=== PATIENT | male | born 1955 | race Caucasian/White ===

== ENCOUNTER → 2018-04-23 | Outpatient (CLI) | payer OTHER ==
[~2018-04-23] MED LIST: ACID REDUCER20 MG PO; AMIT25 PO; ATOR10 PO; CYCL10 PO; DOC250 PO; FINA5 PO; GABA300 PO; HYDR1TAB94 PO; Mobic15 MG PO; TAMS.4ER PO; Toprol Xl50 MG PO
[2018-04-23 10:43] LABS: Alanine Aminotransfer (ALT/SGP 26 U/L (12-78); Albumin, Blood 3.6 g/dL (3.4-5.0); Alk Phos 115 U/L (40-126); Anion Gap 8 mmol/L (6-16); Aspartate Aminotrans (AST/SGOT 20 U/L (12-37); Bilirubin, Total 0.4 mg/dL (0.1-1.0); Blood Urea Nitrogen 16 mg/dL (8-24); CO2, Blood 28 mmol/L (21-32); Calcium, Blood 9.3 mg/dL (8.5-10.1); Chloride, Blood 105 mmol/L (98-108); Globulin, Blood 3.6 g/dL (2.2-4.0); Glomerular Filtration Rate >60 (60-); Glucose, Blood 108 mg/dL (70-99); Potassium, Blood 3.9 mmol/L (3.5-5.5); Sodium, Blood 141 mmol/L (136-145); Total Protein, Blood 7.2 g/dL (6.4-8.2)
== END | disposition home or self-care (01) ==
LOC: LAB SHORT 10:13 → LAB EV 10:13
PROVIDERS: Physician Assistant Medical
DX: R60.9 Edema, unspecified (principal)
CPT/HCPCS: 80053

== ENCOUNTER → 2018-12-20 | Outpatient (CLI) | payer OTHER | END | disposition home or self-care (01) | LOC: LAB EV 11:30 → LAB SHORT 11:30 | DX: G89.29 Other chronic pain (principal) | CPT/HCPCS: G0480 ==

== ENCOUNTER → 2018-12-28 | Outpatient (CLI) | payer OTHER | END | disposition home or self-care (01) | LOC: LAB SHORT 15:45 → LAB EV 15:45 | DX: G89.29 Other chronic pain (principal) | CPT/HCPCS: G0480 ==

== ENCOUNTER → 2019-04-19 | Outpatient (CLI) | payer OTHER ==
[2019-04-19 15:15] LABS: Stool Occult Bld Immuno 1 Negative (NEGATIVE)
== END ==
LOC: LAB 12:00 → LAB SHORT 12:00
PROVIDERS: Nurse Practitioner Family
DX: Z12.11 Encounter for screening for malignant neoplasm of colon (principal)
CPT/HCPCS: G0328

== ENCOUNTER 2019-09-12 10:26 | Day surgery (SDC) | payer OTHER ==
[~2019-09-12] VITALS: Ht 175.3 cm; Wt 95.3 kg
[~2019-09-12 10:26] MED LIST changes: +ALBU90OI INH; +BUDE6HFA INH; +CLARITIN10 M1 PO; +DICLO GEL1 EACH TOP; +LORA1SY; +LOSARTAN-HCTZ1 EAC2 PO; +Lipitor20 MG PO; +MONT10T PO; +OMEPRAZOLE20 M1 PO; +TIOT18 INH; +TIZA4 PO
[2019-10-15] MEDS ORDERED: OMEPRAZOLE20 MG PO (14:32)
[2019-10-15] MEDS ORDERED: ATOR20 PO (14:32)
[2019-10-15] MEDS ORDERED: AMIT25 PO (14:32)
[2019-10-15] MEDS ORDERED: TIZA4 PO (14:33)
[2019-10-15] MEDS ORDERED: FINA5 PO (14:33)
[2019-10-15] MEDS ORDERED: GABA300 PO (14:33)
[2019-10-15] MEDS ORDERED: NYST100000 (14:34)
[2019-10-15] MEDS ORDERED: TAMS.4ER PO (14:34)
[2019-10-15] MEDS ORDERED: Mobic15 MG PO (14:34)
[2019-10-15] MEDS ORDERED: METO50ER PO (14:34)
[2019-10-15] MEDS ORDERED: TIOT18 INH (14:35)
[2019-10-15] MEDS ORDERED: BUDE6HFA INH (14:35)
[2019-10-15] MEDS ORDERED: LOSARTAN-HCTZ1 EAC2 PO (14:36)
[2019-10-15] MEDS ORDERED: Ventolin/Prove6.7 GM INH (14:36)
[2019-10-15] MEDS ORDERED: Loratadine10 MG PO (14:36)
[2019-10-15] MEDS ORDERED: MONT10T PO (14:36)
[2019-10-15] MEDS ORDERED: DICLOFENAC SOD100 G1 (14:37)
== END 2019-09-12 13:02 | disposition home or self-care (01) ==
LOC: ORSCSDS 10:26
PROVIDERS: Internal Medicine Gastroenterology
PROC: 0DJD8ZZ Inspection of Lower Intestinal Tract, Via Natural or Artificial Opening Endoscopic (ICD-10-PCS; principal; 2019-09-12 12:00)
PROC: 0DB68ZX Excision of Stomach, Via Natural or Artificial Opening Endoscopic, Diagnostic (ICD-10-PCS; principal; 2019-09-12 12:00)
PROC: 0DB98ZX Excision of Duodenum, Via Natural or Artificial Opening Endoscopic, Diagnostic (ICD-10-PCS; principal; 2019-09-12 12:00)
DX: K21.9 Gastro-esophageal reflux disease without esophagitis (principal); R19.4 Change in bowel habit; R19.7 Diarrhea, unspecified; K63.5 Polyp of colon; R10.13 Epigastric pain; K31.7 Polyp of stomach and duodenum; I10 Essential (primary) hypertension; J44.9 Chronic obstructive pulmonary disease, unspecified; Z79.899 Other long term (current) drug therapy; E78.5 Hyperlipidemia, unspecified; R73.9 Hyperglycemia, unspecified
CPT/HCPCS: 88305; 88341; 88342; J2704; J7120

== ENCOUNTER 2019-10-22 09:35 | Day surgery (SDC) | payer OTHER ==
[~2019-10-22] VITALS: Ht 175.3 cm; Wt 96.6 kg
[~2019-10-22 09:35] MED LIST changes: +ATOR20 PO; +DICLOFENAC SOD100 G1; +Loratadine10 MG PO; +METO50ER PO; +NYST100000; +OMEPRAZOLE20 MG PO; +Ventolin/Prove6.7 GM INH
--- NOTE | 2019-10-22 10:31 | NUR ---
10/22/19 1031 ERICA CISNEROS ONE BAD IV IN HAND DUE TO BLOWN VEIN BY TRICIA. ONE GOOD IV IN R AC BY YONATHAN OTERO GOOD.
== END 2019-10-22 11:57 | disposition home or self-care (01) ==
LOC: ORSCSDS 09:35
PROVIDERS: Internal Medicine Gastroenterology
PROC: 0DBL8ZX Excision of Transverse Colon, Via Natural or Artificial Opening Endoscopic, Diagnostic (ICD-10-PCS; principal; 2019-10-22 11:00)
PROC: 0DBN8ZX Excision of Sigmoid Colon, Via Natural or Artificial Opening Endoscopic, Diagnostic (ICD-10-PCS; principal; 2019-10-22 11:00)
PROC: 0DBM8ZX Excision of Descending Colon, Via Natural or Artificial Opening Endoscopic, Diagnostic (ICD-10-PCS; principal; 2019-10-22 11:00)
DX: R19.4 Change in bowel habit (principal); R19.7 Diarrhea, unspecified; K63.5 Polyp of colon; D12.3 Benign neoplasm of transverse colon; K62.1 Rectal polyp; K57.30 Diverticulosis of large intestine without perforation or abscess without bleeding; K64.8 Other hemorrhoids; J44.9 Chronic obstructive pulmonary disease, unspecified; F17.210 Nicotine dependence, cigarettes, uncomplicated; I10 Essential (primary) hypertension; K21.9 Gastro-esophageal reflux disease without esophagitis; E78.5 Hyperlipidemia, unspecified; Z79.899 Other long term (current) drug therapy
CPT/HCPCS: 88305; J2704; J7120

== ENCOUNTER 2019-12-18 02:54 | Inpatient (IN) | payer OTHER ==
[~2019-12-18] VITALS: Ht 175.3 cm; Wt 95.2 kg
[~2019-12-18 02:54] MED LIST changes: +ONDA4ODT MM; +OXYC10ER PO; +Roxicodone5 MG PO
[2019-12-18 03:30] LABS: BASOPHILS ABSOLUTE AUTO 0.13 K/mm3 (0.00-0.23); BASOPHILS PERCENT AUTO 0 % (0-2); EOSINOPHILS ABSOLUTE AUTO 0.01 K/mm3 (0.00-0.68); EOSINOPHILS PERCENT AUTO 0 % (0-6); Hematocrit 39.5 % (37.0-53.0); Hemoglobin 12.5 g/dL (13.5-17.5); IMMATURE GRAN ABSOLUTE AUTO 1.25 K/mm3 (0.00-0.10); IMMATURE GRAN PERCENT AUTO 3 % (0-1); LYMPHOCYTES ABSOLUTE AUTO 0.76 K/mm3 (0.84-5.20); LYMPHOCYTES PERCENT AUTO 2 % (21-46); MONOCYTES ABSOLUTE AUTO 1.86 K/mm3 (0.16-1.47); MONOCYTES PERCENT AUTO 4 % (4-13); Mean Corpuscular HGB 30.3 pg (26.0-34.0); Mean Corpuscular HGB Conc 31.6 g/dL (31.5-36.5); Mean Corpuscular Volume 96 fL (80-100); NEUTROPHILS ABSOLUTE AUTO 40.26 K/mm3 (1.96-9.15); NEUTROPHILS PERCENT AUTO 91 % (41-73); Platelet Count 250 K/mm3 (150-400); RDW Coefficient Variation 13.1 % (11.7-14.2); RDW Standard Deviation 46.1 fL (35.1-46.3); Red Blood Cell Count 4.12 M/mm3 (4.30-5.90); White Blood Cell Count 44.27 K/mm3 (4.00-11.30)
[2019-12-18 03:49] LABS: Alanine Aminotransfer (ALT/SGP 372 U/L (12-78); Albumin/Globulin Ratio 0.5 (0.8-1.8); Alk Phos 396 U/L (50-136); Anion Gap 25 mmol/L (6-16); Bilirubin, Total 2.4 mg/dL (0.1-1.0); Blood Urea Nitrogen 62 mg/dL (8-24); Bun/Creatinine Ratio 32.8 (12.0-20.0); CO2, Blood 20 mmol/L (21-32); Calcium, Blood 8.9 mg/dL (8.5-10.1); Chloride, Blood 93 mmol/L (98-108); Creatinine, Blood 1.89 mg/dL (0.60-1.20); Globulin, Blood 4.2 g/dL (2.2-4.0); Glomerular Filtration Rate 38 (60-); Glucose, Blood 168 mg/dL (70-99); Potassium, Blood 3.8 mmol/L (3.5-5.5); Sodium, Blood 138 mmol/L (136-145); Total Protein, Blood 6.2 g/dL (6.4-8.2); Troponin I <0.015 ng/mL (0.000-0.040)
[2019-12-18 04:36] LABS: Aspartate Aminotrans (AST/SGOT 514 U/L (12-37)
[2019-12-18] MEDS ORDERED: Norco 10-325 T1 EACH PO (08:52)
[2019-12-18 09:38] LABS: Hematocrit 35.4 % (37.0-53.0); Hemoglobin 11.5 g/dL (13.5-17.5); Mean Corpuscular HGB 30.8 pg (26.0-34.0); Mean Corpuscular HGB Conc 32.5 g/dL (31.5-36.5); Mean Corpuscular Volume 95 fL (80-100); Mean Platelet Volume 11.9 fL (9.1-12.4); Platelet Count 228 K/mm3 (150-400); RDW Coefficient Variation 13.2 % (11.7-14.2); RDW Standard Deviation 46.1 fL (35.1-46.3); Red Blood Cell Count 3.73 M/mm3 (4.30-5.90); White Blood Cell Count 42.05 K/mm3 (4.00-11.30)
--- NOTE | 2019-12-18 09:43 | NUR ---
PATIENT ASKED BY IF HE WANTS TO BE RESUSITATED IF HIS HEART SHOULD STOP. MD REVIEWS WHAT THAT ENTAILS W/RN IN ATTENTANCE. PATIENT REQUEST DNR
[2019-12-18 10:00] LABS: International Normalized Ratio 3.55; Prothrombin Time Results 35.4 Sec (9.7-11.5)
--- NOTE | 2019-12-18 11:24 | NUR ---
DISCUSS WITH PAIN MEDS-CHANGE FENTANYL TO Q3 HOURS, LEAVE DILAUDID. HEMOGLOBIN DOWN 1 POINT. HAS PROBLEMS IN PAST WITH RETENTION. IF BLADDER >500ML CAN PUT LEONE IN.
[2019-12-18 16:04] LABS: Hematocrit 34.9 % (37.0-53.0); Hemoglobin 11.3 g/dL (13.5-17.5); Mean Corpuscular HGB 30.9 pg (26.0-34.0); Mean Corpuscular HGB Conc 32.4 g/dL (31.5-36.5); Mean Corpuscular Volume 95 fL (80-100); Mean Platelet Volume 12.3 fL (9.1-12.4); NRBC ABSOLUTE 0.04 K/mm3 (0.00-0.02); NRBC Auto 0.1 /100 WBC (0.0-0.2); Platelet Count 215 K/mm3 (150-400); RDW Coefficient Variation 13.4 % (11.7-14.2); RDW Standard Deviation 47.1 fL (35.1-46.3); Red Blood Cell Count 3.66 M/mm3 (4.30-5.90)
--- NOTE | 2019-12-18 18:17 | NUR ---
PATIENT ARRIVES FROM E. AROUND 0840. ALERT. ORIENTED. 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 AWARE OF DIFFICULT TO DIMINISH PATIENTS PAIN. TIMING FOR ONE PAIN MED WAS CHANGED. NPO. PATIENT SLEEPING MOST TIME WHEN RN ENTERS, BUT EASILY WAKES UP. PATIENT AWARE OF SEVERITY OF SITUATION. MULTIPLE RELATIVES COMING FROM [place]. [facility]
--- NOTE | 2019-12-18 20:05 | NUR ---
PAIN/NAUSEA: PATIENT HAS UNCOMTROLED PAIN AND NAUSEA. DR GONZALES IS NOTIFED NEW ORDERS OBTAINED SEE MAR.
[2019-12-18 21:10] LABS: Hemoglobin 10.6 g/dL (13.5-17.5); Mean Corpuscular HGB 30.8 pg (26.0-34.0); Mean Corpuscular HGB Conc 32.1 g/dL (31.5-36.5); Mean Corpuscular Volume 96 fL (80-100); Mean Platelet Volume 11.9 fL (9.1-12.4); NRBC ABSOLUTE 0.11 K/mm3 (0.00-0.02); NRBC Auto 0.3 /100 WBC (0.0-0.2); Platelet Count 215 K/mm3 (150-400); RDW Coefficient Variation 13.5 % (11.7-14.2); Red Blood Cell Count 3.44 M/mm3 (4.30-5.90); White Blood Cell Count 38.67 K/mm3 (4.00-11.30)
--- NOTE | 2019-12-18 21:41 | NUR ---
HYPOTENTION: PATIENT CONTINUES TO BE HYPOTENSIVE, TEMP AND HEART RATE ARE ELEVATED RR 25 AND IS ON 2L O2 NS SAT 0F 95%. PAIN AND NAUSEA ARE STAILL UNCONTROLED. DR GONZALES IS CALLED. BOLUS, BLOOD CULTURES, LACTIC ACID ARE ORDERED AND PATIENT WILL BE TRANSFERED TO ICU. PATIENT IS TOLERATING PAIN AND NAUSEA FAIR BUT REPORTS NOT FEELING WELL AND CAN NOT CATCH HIS BREATH.
--- NOTE | 2019-12-18 22:22 | NUR ---
TRANSFER: REPORT WAS CALLED TO DANNIE RN IN PCU. SECOND BOLUS WAS COMPLETED. PATIENT WILL BE TRANSFERED TO PCU 6 VIA WHEEL CHAIR.
--- NOTE | 2019-12-18 23:16 | NUR ---
ASSUMED PATIENT CARE. PATIENT TRANSFERED TO BED FROM WHEELCHAIR WITH STANDBY ASSIST. PATIENT ON 3 L NASAL CANNULA. PATIENT EXPRESSED ANXIETY OVER WORK OF BREATHING, PATIENT ASSISTED IN REPOSITIONING AND DISTRACTION METHODS BY THIS RN AND ENDORSED RELIEF OF ANXIETY. NO SIGNS OF ACUTE DISTRESS AT THIS TIME, WCTM.
[2019-12-19 01:31] LABS: Hematocrit 30.6 % (37.0-53.0); Hemoglobin 9.8 g/dL (13.5-17.5); Mean Corpuscular HGB 31.1 pg (26.0-34.0); Mean Corpuscular Volume 97 fL (80-100); Mean Platelet Volume 11.8 fL (9.1-12.4); NRBC ABSOLUTE 0.14 K/mm3 (0.00-0.02); NRBC Auto 0.4 /100 WBC (0.0-0.2); Platelet Count 191 K/mm3 (150-400); RDW Coefficient Variation 13.5 % (11.7-14.2); RDW Standard Deviation 48.3 fL (35.1-46.3); Red Blood Cell Count 3.15 M/mm3 (4.30-5.90); White Blood Cell Count 34.69 K/mm3 (4.00-11.30)
[2019-12-19 01:50] LABS: BAND PERCENT MAN 3 % (0-8); BASOPHILS PERCENT MAN 0 % (0-2); EOSINOPHILS PERCENT MAN 0 % (0-6); LYMPHOCYTES ABSOLUTE MAN 0.34 K/mm3 (0.84-5.20); LYMPHOCYTES PERCENT MAN 1 % (21-46); MONOCYTES ABSOLUTE MAN 1.38 K/mm3 (0.16-1.47); MONOCYTES PERCENT MAN 4 % (4-13); MYELOCYTE ABSOLUTE MAN 0.69 K/mm3 (0.00-0.00); MYELOCYTE PERCENT MAN 2 % (0-0); NEUTROPHILS ABSOLUTE MAN 32.26 K/mm3 (1.96-9.15); SEG NEUTROPHILS PERCENT MAN 90 % (41-73); TOTAL CELLS COUNTED 100
[2019-12-19 02:05] LABS: Albumin, Blood 1.7 g/dL (3.4-5.0); Albumin/Globulin Ratio 0.5 (0.8-1.8); Bilirubin, Total 2.4 mg/dL (0.1-1.0); Bun/Creatinine Ratio 24.2 (12.0-20.0); Calcium, Blood 8.2 mg/dL (8.5-10.1); Creatinine, Blood 3.27 mg/dL (0.60-1.20); Globulin, Blood 3.4 g/dL (2.2-4.0); Potassium, Blood 4.6 mmol/L (3.5-5.5); Total Protein, Blood 5.1 g/dL (6.4-8.2)
--- NOTE | 2019-12-19 06:21 | NUR ---
NO ACUTE EVENTS THIS HALF OF SHIFT. PATIENT HAS ENDORSED NAUSEA THROUGH THIS SHIFT, WELL ABDOMINAL TENDERNESS. BOWEL SOUNDS ARE HYPOACTIVE. WARM BLANKET AND DISTRACTION PROVIDED. PATIENT ENDORSED FEELING ANXIOUS ABOUT SOB, RT DELIVERED ALBUTEROL INHALER, PATIENT ENDORSED RELIEF. PATIENT RECEIVED 2 BAGS OF LR THIS HALF OF SHIFT, THEN SWITCHED TO NS AT 100 ML/HR. PATIENT'S LACTIC ACID TRENDED DOWN FROM 8.5 TO 8.1.
[2019-12-19 08:52] LABS: Hematocrit 30.8 % (37.0-53.0); Hemoglobin 9.8 g/dL (13.5-17.5); Mean Corpuscular HGB 30.7 pg (26.0-34.0); Mean Corpuscular HGB Conc 31.8 g/dL (31.5-36.5); Mean Corpuscular Volume 97 fL (80-100); Mean Platelet Volume 11.9 fL (9.1-12.4); NRBC ABSOLUTE 0.23 K/mm3 (0.00-0.02); NRBC Auto 0.6 /100 WBC (0.0-0.2); Platelet Count 196 K/mm3 (150-400); RDW Coefficient Variation 13.4 % (11.7-14.2); RDW Standard Deviation 47.5 fL (35.1-46.3); Red Blood Cell Count 3.19 M/mm3 (4.30-5.90); White Blood Cell Count 36.95 K/mm3 (4.00-11.30)
--- NOTE | 2019-12-19 10:08 | NUR ---
SPOKE W/ DR. CERVANTES ON PHONE TO CLARIFY INDICATION FOR UNIT OF FFP. MD STATED TO HOLD OFF ON GIVING FFP. DR. CERVANTES HAD LONG DISCUSSION W/ PT REGARDING FURTHER TX OPTIONS & PT DOES NOT WANT ANY AGGRESSIVE MEASURES, NO BLOOD PRODUCTS. DISCUSSED W/ DR. CERVANTES THAT PAIN MEDS WERE NOT BEING GIVEN DUE TO PT'S LOW BP, RUNNING SYSTOLICALLY IN THE 80'S LASTNIGHT. SBP NOW MAINTAINING BETWEEN 90'S TO LOW 100'S. STATED OKAY TO GIVE PAIN MEDICATIONS W/ LOW BP & TO TITRATE IVF NEEDED TO MAINTAIN BP. PLAN IS LIKELY FOR PT TO TRANSITION TO COMFORT CARE TOMORROW AFTER HIS BROTHER ARRIVES. WILL CONTINUE TO MONITOR.
--- NOTE | 2019-12-19 17:55 | NUR ---
Met with this patient this afternoon. He was wanting to sit at side of the bed but is to dizzy struggling with positioning. pt states he now has amild headache april is worsening. no visual disturbance some mild intermintant ringing and buzzing in his ears. His mouth is dry but not sore swallow feels just ok. No appetite food tastes strange. pt able to dose off but not sleep well. States his brething is tight and feels some preassure but no pain. Main complaint is abdomen is tight and full he feels constipated. He is belching and passing gas soem nausea and wretching. some dep aching to shouldes and hips. Asked pt if we can get his comfortable and services can we get him home tomorrow so he can visit with his family. Pt states no one to care for him at home. family from out of state is here to visit for the day then has to return. He is fearful to leave. Pt reassured. He is distraught that his phone will loose its charge. Saw T[employer]er provided. Updated pt that vistors may be limited, he became very distraught so limited conversation. Updated nursing on his symptoms, requested prn meds notified physician of pt pain requested fentanyl patch. theraputic time for patient. Will see if nause and pain meds can get hism some sleep and titrate as needed. Goal is supportive and hospice care. Asked care managers to see if hospice staff available if family is willing to take him home.
--- NOTE | 2019-12-19 19:00 | NUR ---
ASSUMED CARE ASSUMED CARE OF PATIENT. AWAKE AND ALERT, BUT APPEARS DROWSY. CONTINUES WITH C/O ABDOMINAL PAIN, BUT DOES NOT WANT TO TAKE IV PAIN MEDS AT THIS TIME. ALSO CONTINUES WITH NAUSEA. ABLE TO ASSIST SLIGHTLY WITH REPOSTIONING. BED IS IN HIGH KAHN'S POSITION TO FACILITATE BREATHING. DYSPNEA NOTED WITH MINIMAL EXERTION. O2 3L NC. OCCASIONAL NON-PRODUCTIVE COUGHING. RESPIRATIONS TACHYPNEIC AT TIMES. TELEMETRY SHOWS ST, RATE 110-116. VOIDS USING URINAL WITHOUT DIFFICULTY. GENERAL WEAKNESS NOTED. SEE SHIFT ASSESSMENT FOR FULL ASSESSMENT.
--- NOTE | 2019-12-19 19:05 | NUR ---
SHIFT SUMMARY NO ACUTE CHANGES THROUGHOUT SHIFT. SBP STILL RUNNING LOW 90-100'S, PT RECEIVING CONTINUOUS IVF. PT MEDICATED FOR PAIN PER EMAR, FENTANYL PATCH WAS ORDERED & PLACED ON PT TO HELP BETTER CONTROL PAIN; PT REPORTS MILD RELIEF, BUT STILL W/ CURRENT ABDOMINAL PAIN RATING 8/10. PT REMAINED NPO, MEDICATED FOR NAUSEA THROUGHOUT SHIFT. REMAINED AFEBRILE. STILL RUNNING ST 110-120'S ON TELE & NOTABLY TACHYPNEIC. PLAN IS FOR PT TO TRANSFER TO FULL COMFORT CARE TOMORROW AFTER HIS BROTHER ARRIVES TO SEE HIM. REPORT GIVEN TO ONCOMING RN.
--- NOTE | 2019-12-19 19:19 | NUR ---
Recheck on patient still some struggle with pain and nausea. updated charge nurse stefani pt some lemonade toleance good. may need to increase prn meds for Gi distress.
--- NOTE | 2019-12-19 21:30 | NUR ---
FAMILY VISIT SISTER, BROTHER, AND [id number] ARE IN ROOM TO DISCUSS PLAN OF CARE. PT STATES THAT THEY WERE EXPECTING DR. CERVANTES TO ARRIVE TO DISCUSS OPTIONS OF COMFORT CARE AND FURTHER TREATMENT. INFORMED PATIENT AND FAMILY THAT DR. CERVANTES WAS NO LONGER IN THE HOSPITAL. ALSO INFORMED PATIENT THAT THE DAY SHIFT RN COMMUNICATED THAT THE MEETING WAS TO TAKE PLACE 3/20 AM. PT APPEARED SLIGHTLY UPSET REGARDING MISUNDERSTANDING.
--- NOTE | 2019-12-20 02:15 | NUR ---
DYSPNEA/PAIN PT C/O INCREASE DYSPNEA. STATES "I CAN'T GET ENOUGH AIR." O2 FOUND OFF AT THIS TIME. REPLACED AT 6L. SATS READING 91%. RR 28-30. MEDICATED WITH FENTANYL 50MCG IV AT THIS TIME FOR DYSPNEA AND GENERAL/ABDOMINAL PAIN.
--- NOTE | 2019-12-20 02:40 | NUR ---
DYSPNEA/ANXIETY PT CONTINUES TO C/O NOT BEING ABLE TO BREATHE. RR 30s. ATTEMPTED 15L NRB, BUT PT DID NOT TOLERATE THE MASK ON HIS FACE. O2 SATS ARE READING 95%, BUT LOW PERFUSION INDEX NOTED AND HR WITH SPO2 DOES NOT CORRELATE WITH MONITOR RATE. CHANGED BACK TO 6L NC. DR. CRAWFORD NOTIFIED AND NEW ORDER RECEIVED FOR ATIVAN 1MG IV Q6H PRN.
--- NOTE | 2019-12-20 03:10 | NUR ---
CALL TO FAMILY CALL TO FAMILY TO UPDATE ON CONDITION AT THIS TIME. NO ANSWER- MESSAGE WAS LEFT ON BROTHER SOFIA'S PHONE. PT IS MORE DIFFICULT TO AROUSE AT THIS TIME. RR 10-12.
--- NOTE | 2019-12-20 03:30 | NUR ---
TOD PT WITHOUT PULSE AND WITHOUT RESPIRATIONS AT THIS TIME. RN AT BEDSIDE FOR LAST FIFTEEN MINUTES. STILL UNABLE TO GET A HOLD OF PT'S FAMILY AT THIS TIME.
== END 2019-12-20 07:00 | DRG 435 ==
LOC: ER 02:54 → MEDS 05:57 → PCU 22:30
PROVIDERS: Emergency Medicine; Hospitalist; ADMIT Internal Medicine
DX: C25.1 Malignant neoplasm of body of pancreas (principal); N17.0 Acute kidney failure with tubular necrosis; K72.00 Acute and subacute hepatic failure without coma; Z66 Do not resuscitate; Z51.5 Encounter for palliative care; K66.1 Hemoperitoneum; C78.7 Secondary malignant neoplasm of liver and intrahepatic bile duct; E87.2 Acidosis; R94.5 Abnormal results of liver function studies; R58 Hemorrhage, not elsewhere classified; R57.8 Other shock; K21.9 Gastro-esophageal reflux disease without esophagitis; N40.0 Benign prostatic hyperplasia without lower urinary tract symptoms; E78.5 Hyperlipidemia, unspecified; I10 Essential (primary) hypertension; G62.9 Polyneuropathy, unspecified; Z87.891 Personal history of nicotine dependence
CPT/HCPCS: 36415; 71260; 74176; 80053; 82947; 83605; 83690; 84484; 85025; 85027; 85610; 86850; 86900; 86901; 87040; 93005; 93010; 94640; 94760; 96361; 96374; 96375; 96376; 99285-25; J1170; J2060; J2405; J2543; J2550; J2765; J3010; J7030; J7120; Q9967